=== PATIENT | male | born 1945 | race Caucasian/White ===

== ENCOUNTER 2025-04-15 11:39 | Day surgery (SDC) | payer OTHER ==
[~2025-04-15] VITALS: Ht 165.1 cm; Wt 91.5 kg
[~2025-04-15 11:39] MED LIST: Balanced Salt Epinephrine Irrigation Solution 500 mL IR SCH; Moxifloxacin HCL 0.5 MG/0.1 ML 0.4MLSYR RIGHTEYE SCH; Ondansetron 4 MG SoluTab MM PRN; PHENYLEPHRINE\\TROPICAMIDE\\TETRACAINE OPHTHALMIC DILATING SOLN RIGHTEYE PRN; Povidone-Iodine 450 DROP/30 ML Solution ONE; Povidone-Iodine 450 DROP/30 ML Solution RIGHTEYE SCH; Tetracaine HCl/Pf 0.5% Opth Soln 4 ml ONE; Triamcinolone Inj Susp 40 MG / ML 1ML Vial INJ SCH; Triamcinolone Inj Susp 40 MG / ML 1ML Vial ONE
[2025-04-15] MEDS ORDERED: SERT100 PO (12:58)
[2025-04-15] MEDS ORDERED: METO25 (12:58)
[2025-04-15] MEDS ORDERED: AMLO5 PO (12:59)
[2025-04-15] MEDS ORDERED: OMEP20ER PO (12:59)
[2025-04-15] MEDS ORDERED: FINA5 PO (12:59)
[2025-04-15] MEDS ORDERED: Hytrin2 MG PO (12:59)
--- NOTE | 2025-04-15 13:07 | NUR ---
04/15/25 1307 Yusra Nina PT DENIES ANY ANXIETY UPON ARRIVAL. VALIUM 10MG ADMINISTERED AT 1257. PULSE OXIMETRY IN PLACE SHOWING SP02 OF 95% ON RA. TETRACAINE IN AT 1258 PLEDGETT IN AT 1259 PT TOLERATED WELL SIDE RAILS UP, CALL LIGHT IN REACH
--- NOTE | 2025-04-15 13:49 | NUR ---
04/15/25 1349 Mariah Harvey HR:62 RR:14 BP:148/90 SPO2:98% ON 10L BLOW BY O2
[2025-04-15 14:07] VITALS: BP 160/90
== END 2025-04-15 14:21 | disposition home or self-care (01) ==
LOC: ORSCSDS 11:39
PROVIDERS: Ophthalmology
PROC: 08RJ3JZ Replacement of Right Lens with Synthetic Substitute, Percutaneous Approach (ICD-10-PCS; principal; 2025-04-15 14:00)
DX: H25.813 Combined forms of age-related cataract, bilateral (principal); H21.81 Floppy iris syndrome; I10 Essential (primary) hypertension; E78.5 Hyperlipidemia, unspecified; F32.A Depression, unspecified; K21.9 Gastro-esophageal reflux disease without esophagitis; Z79.899 Other long term (current) drug therapy
CPT/HCPCS: A9270; J3301; V2632